=== PATIENT | female | born 1965 | race Caucasian/White ===

== ENCOUNTER 2021-02-25 08:09 | Emergency (ER) | payer BC ==
[~2021-02-25] VITALS: Ht 165.1 cm; Wt 82.7 kg
[2021-02-25 08:32] VITALS: BP 124/59
[2021-02-25] MEDS ORDERED: GABA300C18 PO (08:58)
--- NOTE | 2021-02-25 08:58 | PHYS DOC ---
General Adult EDM: Chief Complaint: LOWER EXT PAIN HPI: HPI: Patient is a 55 year old female with history of left-sided sciatica who presents with a flareup of her sciatica pain. Patient states approximately 6 days ago was moving several boxes and was doing some heavier lifting. The next day began having left-sided low back pain over her SI joint. It radiated down the back of her thigh to the level of her knee. Described as burning. Denies any weakness or numbness. No saddle anesthesia. No fever or chills. No previous back surgeries. No trauma. No bowel/bladder incontinence. Not on any immunosuppressive medications. Has been taking Tylenol and has tried Flexeril at home without effect. Patient states that she has been prescribed narcotic medications for nighttime use in the past for her sciatica. She has seen a PM&R physician in the past, but does not currently have follow-up with them. She does have a PCP. Review of Systems: Review of Systems: Constitutional: Denies fever or chills. [] HENT: Denies nasal congestion or sore throat. [] Respiratory: Denies cough or shortness of breath. [] GI: Denies abdominal pain, nausea, vomiting : No bowel/bladder incontinence Musculoskeletal: Reports left-sided low back pain and sciatica. Integument: Denies rash. [] Neurologic: No saddle anesthesia, focal weakness or sensory changes. [] Heart Score: C/O Chest Pain: No Physical Exam: PE: Constitutional: Well developed, well nourished, no acute distress, non-toxic appearance. [] HENT: Normocephalic, atraumatic. Neck: supple, no stridor. [] Cardiovascular:Heart rate regular rhythm, no murmur [] Lungs & Thorax: Normal work of breathing Skin: No overlying rash. Extremities: No tenderness, 2+ DP pulse bilaterally. Neurologic: Alert and oriented X 3, normal motor function, normal sensory function, no focal deficits noted. [] Specifically 5/5 strength bilaterally in: -Hip flexion and adduction -Knee flexion/extension -Ankle plantar/dorsiflexion -Dorsiflexion of the great toe adduction of thighs Psychologic: Affect normal, judgement normal, mood normal. [] EKG: EKG: [] Radiology/Procedures: Radiology/Procedures: [] Course & Med Decision Making: Course & Med Decision Making Pertinent Labs and Imaging studies reviewed. (See chart for details) Patient 55-year-old female with history of sciatica who presents with symptoms consistent with sciatica flare. No back pain red flags as outlined in HPI. No trauma or weakness on examination. Do not feel that urgent/emergent imaging of the back is indicated. Patient has a history of gastritis limiting use of NSAID, prednisone. I have advised her to continue taking Tylenol on a schedule, prescribed gabapentin, and she has Flexeril at home to use as needed for muscle spasms. We discussed narcotic medication, and she requested small Rx for nighttime only use but I have declined this request. I have referred her to our pain management clinic, and asked her to follow-up with her PCP to discuss physical therapy if symptoms persist. [id number] Lois Disclaimer: Lois Disclaimer: This electronic medical record was generated, in whole or in part, using a voice recognition dictation system. Departure Departure Impression: Primary Impression: Lumbar radicular pain Disposition: HOME / SELF CARE / HOMELESS Condition: STABLE Referrals: MARGARET BARRAZA MD Please schedule an appointment with Dr. Barraza in our pain clinic. Patient Instructions: Sciatica with [facility] Additional Instructions: Please schedule an appointment with your PCP to discuss physical therapy, and other potential pain management strategies. Please see the contact information for Dr. Margaret Barraza, our pain management hospice clinical supervisor. Please take acetaminophen 1000 mg every 6 hours on a schedule. You can take g abapentin 300 mg up to 3 times a day for nerve pain. If you do feel that there is a muscle spasm component you can take the Flexeril, which you have available to you at home. If you develop high fevers, shaking chills, bowel/bladder incontinence, lower ex tremity weakness or other new/concerning symptoms please return to the emergency department for reevaluation. Scripts Gabapentin (GABAPENTIN ) 300 Mg Capsule 300 MG PO PRN TID PRN for PAIN, #60 CAP 0 Refills Prov: JEFERSON REYES MD 02/25/21 JEFERSON REYES MD Feb 25, 2021 08:58
== END 2021-02-25 09:03 | disposition home or self-care (01) ==
LOC: ER 08:09
DX: M54.16 Radiculopathy, lumbar region (principal); M54.42 Lumbago with sciatica, left side
CPT/HCPCS: 99283